=== PATIENT | male | born 2000 | race Caucasian/White ===

== ENCOUNTER 2019-06-29 16:02 | Emergency (ER) | payer SELFPAY ==
[~2019-06-29] VITALS: Ht 175.3 cm; Wt 75.7 kg
[2019-06-29 16:08] VITALS: BP 110/65; Ht 175.3 cm; Wt 75.7 kg
== END 2019-06-29 18:01 | disposition home or self-care (01) ==
LOC: ED 16:02
DX: S42.201A Unspecified fracture of upper end of right humerus, initial encounter for closed fracture (principal); V87.8XXA Person injured in other specified noncollision transport accidents involving motor vehicle (traffic), initial encounter; Y93.55 Activity, bike riding; Y92.828 Other wilderness area as the place of occurrence of the external cause; Y99.8 Other external cause status

== ENCOUNTER 2019-06-30 22:57 | Emergency (ER) | payer SELFPAY ==
[~2019-06-30] VITALS: Ht 175.3 cm; Wt 74.8 kg
[2019-06-30 23:05] VITALS: Ht 175.3 cm; Wt 74.8 kg
[2019-07-01 00:19] VITALS: BP 114/67
== END 2019-07-01 00:19 | disposition home or self-care (01) ==
LOC: ED 22:57
DX: S42.291D Other displaced fracture of upper end of right humerus, subsequent encounter for fracture with routine healing (principal); X58.XXXD Exposure to other specified factors, subsequent encounter